=== PATIENT | female | born 1940 | race Caucasian/White ===

== ENCOUNTER 2018-05-07 07:09 | Inpatient (IN) | payer MEDICARE, MEDICAID ==
[~2018-05-07] VITALS: Ht 147.3 cm; Wt 68.5 kg
[2018-05-07] MEDS ORDERED: SODIUM CHLORIDE 0.9% 500 ML IV ONE (07:47)
[2018-05-07] MEDS ORDERED: FAMOTIDINE 20MG/2ML VIAL IV STA (07:47)
[2018-05-07 08:11] LABS: BASOPHILS % 0.6 % (0.0-2.0); EOSINOPHILS % 0.3 % (0.0-5.0); HEMATOCRIT. 42.7 % (36.0-48.0); HEMOGLOBIN. 14.2 g/dL (12.0-16.0); LYMPHOCYTES % 15.6 % (20.0-50.0); MEAN CORPUSCULAR HEMOGLOBIN 30.7 pg (28.0-32.0); MEAN CORPUSCULAR VOLUME 92.1 fL (81.0-99.0); MEAN PLATELET VOLUME 9.8 fl (7.4-10.4); NEUTROPHILS % 77.5 % (40.0-76.0); PLATELET 207 x1000/uL (130-400); RED BLOOD CELL COUNT 4.64 mill/uL (4.2-5.4); RED CELL DISTRIBUTION WIDTH 13.2 % (11.6-14.6)
[2018-05-07] MEDS ORDERED: CEFTRIAXONE 1 G PREMIX 50 ML IV ONE (08:15)
[2018-05-07 08:16] LABS: CHLORIDE 103 mEq/L (98-107)
[2018-05-07 08:18] LABS: INR 1.1; PROTHROMBIN TIME 10.7 sec (9.1-11.1)
[2018-05-07 08:30] LABS: CLARITY URINE CLEAR (CLEAR); COLOR URINE YELLOW (YELLOW); KETONES URINE NEGATIVE (NEGATIVE); LEUKOCYTE ESTERASE URINE NEGATIVE (NEGATIVE); NITRITE URINE NEGATIVE (NEGATIVE); OCCULT BLOOD URINE NEGATIVE (NEGATIVE); PH URINE 6.5 (4.5-8.0); PROTEIN URINE TRACE (NEGATIVE)
[2018-05-07] MEDS ORDERED: PIPERACILLIN/TAZ 3.375G PREMIX 50 ML IV ONE (09:00)
[2018-05-07] MEDS ORDERED: SODIUM CHLORIDE 0.9% 1000ML BAG (SEPSIS BOLUS) IV ONE (09:00)
[2018-05-07 12:00] VITALS: BP 166/77
[2018-05-07] MEDS ORDERED: ACETAMINOPHEN 325MG TABLET PO PRN (13:45)
[2018-05-07] MEDS ORDERED: IPRATROPIUM/ALBUTEROL 0.5-3(2.5)MG/3ML NEB INH PRN (13:45)
[2018-05-07] MEDS ORDERED: ONDANSETRON HCL 4MG/2ML INJ IV PRN (13:45)
[2018-05-07] MEDS ORDERED: MORPHINE SULFATE 4 MG/ML CPJ (NOT FOR IM USE) IV PRN (13:45)
[2018-05-07] MEDS: METRONIDAZOLE 500 MG PREMIX 100 ML IV SCH ×2 (15:04→22:17)
[2018-05-07] MEDS: ENOXAPARIN 40MG/0.4ML SYR SUBCUT SCH (15:04)
[2018-05-07] MEDS: DEXT 5%/0.45% NACL 1000ML 1,000 ML IV SCH ×2 (15:04→22:18)
[2018-05-07 16:00] VITALS: BP 133/55
[2018-05-07] MEDS ORDERED: LEVOFLOXACIN 500MG PREMIX 100 ML IV NR (16:00)
[2018-05-07] MEDS ORDERED: OMEP20CA10 MT (17:00)
[2018-05-07 20:00] VITALS: BP 137/77
[2018-05-08] VITALS: BP 96/60
[2018-05-08 04:00] VITALS: BP 116/56
[2018-05-08] MEDS: METRONIDAZOLE 500 MG PREMIX 100 ML IV SCH ×3 (05:12→23:03)
[2018-05-08 06:33] LABS: BASOPHILS % 0.4 % (0.0-2.0); EOSINOPHILS % 0.8 % (0.0-5.0); HEMATOCRIT. 38.6 % (36.0-48.0); LYMPHOCYTES % 23.5 % (20.0-50.0); MEAN CORPUSCULAR HEMOGLOBIN 30.7 pg (28.0-32.0); MEAN CORPUSCULAR VOLUME 91.6 fL (81.0-99.0); MEAN PLATELET VOLUME 9.9 fl (7.4-10.4); MONOCYTES % 7.3 % (2.0-8.0); PLATELET 187 x1000/uL (130-400); RED BLOOD CELL COUNT 4.22 mill/uL (4.2-5.4); RED CELL DISTRIBUTION WIDTH 12.9 % (11.6-14.6)
[2018-05-08 07:35] LABS: CHLORIDE 106 mEq/L (98-107)
[2018-05-08 07:50] LABS: LDL CHOLESTEROL 102 mg/dL (5-100)
[2018-05-08 07:52] LABS: HDL CHOLESTEROL 48 mg/dL (40-59); T4 FREE 1.25 ng/dL (0.76-1.46)
[2018-05-08 11:06] VITALS: BP 103/59
[2018-05-08] MEDS: DEXT 5%/0.45% NACL 1000ML 1,000 ML IV SCH ×2 (11:36→20:09)
[2018-05-08 12:00] VITALS: BP 135/69
[2018-05-08] MEDS: ENOXAPARIN 40MG/0.4ML SYR SUBCUT SCH (15:30)
[2018-05-08] MEDS: LEVOFLOXACIN 250MG PREMIX 50 ML IV SCH (15:31)
[2018-05-08 16:00] VITALS: BP 136/65
[2018-05-08 20:00] VITALS: BP 123/62
[2018-05-09] VITALS: BP 134/70
[2018-05-09 04:00] VITALS: BP 110/58
[2018-05-09] MEDS: METRONIDAZOLE 500 MG PREMIX 100 ML IV SCH ×2 (06:13→14:00)
[2018-05-09] MEDS: DEXT 5%/0.45% NACL 1000ML 1,000 ML IV SCH (06:13)
[2018-05-09 08:00] VITALS: BP 110/50
[2018-05-09 12:00] VITALS: BP 118/69
[2018-05-09] MEDS: LEVOFLOXACIN 250MG PREMIX 50 ML IV SCH (14:00)
[2018-05-09] MEDS: ENOXAPARIN 40MG/0.4ML SYR SUBCUT SCH (14:00)
[2018-05-09 14:28] VITALS: BP 118/69
== END 2018-05-09 14:58 | disposition home or self-care (01) | DRG 392 ==
LOC: ER 07:14 → ENRESERV 10:46 → 6EST 10:56 → EDBEDREQ 11:02
PROVIDERS: ADMIT Internal Medicine; ATTEND Internal Medicine
DX: K57.32 Diverticulitis of large intestine without perforation or abscess without bleeding (principal); R65.10 Systemic inflammatory response syndrome (SIRS) of non-infectious origin without acute organ dysfunction
CPT/HCPCS: 36415; 71045; 74176; 80061; 83605; 83880; 84439; 84443; 84484; 96374; 96375; 99285; C1893; J1650; J1956; J2543; J3490; J7030; J7040

== ENCOUNTER 2020-10-30 14:27 | Emergency (ER) | payer MEDICARE, MEDICAID ==
[~2020-10-30] VITALS: Ht 152.4 cm; Wt 68.0 kg
[~2020-10-30 14:27] MED LIST: OMEP20CA14 MT
[2020-10-30] MEDS ORDERED: ACETAMINOPHEN 500MG TABLET PO ONE (18:30)
[2020-10-30 20:05] VITALS: BP 157/73
== END 2020-10-30 20:07 | disposition home or self-care (01) ==
LOC: ER 14:27
DX: M79.672 Pain in left foot (principal)
CPT/HCPCS: 73630; 99282; 99283